=== PATIENT | female | born 1960 | race Hispanic/Latino ===

== ENCOUNTER 2020-05-03 11:54 | Outpatient (CLI) | payer BC ==
--- NOTE | 2020-05-03 14:08 | Cat Scan Report ---
CT abdomen pelvis wo con INDICATION: N20.0 CALCULUS OF KIDNEY. COMPARISON: None TECHNIQUE: Abdominal and pelvic CT exam performed. All CT scans at this location are performed using CT dose reduction for ALARA by means of automated exposure control. FINDINGS: CT ABDOMEN and PELVIS: Lung Bases: No significant abnormality. Liver: A few hypoattenuating lesions are seen throughout the liver which most likely represent cysts with the largest in hepatic segment 5. Biliary: Gallbladder is surgically absent. Spleen: No significant abnormality. Pancreas: No significant abnormality. Adrenals: No significant abnormality. Kidneys: Numerous bilateral renal nonobstructing stones are present with the largest on the left la uring approximately 7 mm in the lower pole and the largest on the right measuring approximately 4 mm in the lower pole. No intraureteral lesions. No hydronephrosis. Lobulated renal contours most consist ent with scarring. Lymphatics: No lymphadenopathy. Vasculature: No significant abnormality. Bowel/Peritoneum: No significant abnormality. Pelvis: There are several prominent macroscopic fat-containing masses seen throughout the uterus with the largest measuring approximately 5 cm as seen on axial image 154 series 2 Osseous Structures: No aggressive osseous lesion. Mild multilevel spondylosis. Additional Findings: None IMPRESSION: 1. Numerous nonobstructing bilateral renal stones. No intrauterine stones or hydronephrosis. 2. 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 Signer Name: Edson Jiménez MD Signed: 05/03/2020 2:03 PM Workstation Name: [id number]
== END 2020-05-03 11:55 | disposition home or self-care (01) ==
LOC: CT 11:54
PROVIDERS: ATTEND Urology
DX: N20.0 Calculus of kidney (principal); N85.8 Other specified noninflammatory disorders of uterus; M47.816 Spondylosis without myelopathy or radiculopathy, lumbar region; K76.9 Liver disease, unspecified
CPT/HCPCS: 74176